=== PATIENT | female | born 1950 | race Caucasian/White ===

== ENCOUNTER → 2016-10-10 | Outpatient (CLI) | payer MEDICARE ==
--- NOTE | 2016-10-11 10:24 | MM ---
Reason for exam: screening (asymptomatic). Last mammogram was performed 4 years and 6 months ago. History: Patient is postmenopausal. Family history of premenopausal breast cancer in mother. Physical Findings: A clinical breast exam by your physician is recommended on an annual basis and results should be correlated with mammographic findings. MG Screening Mammo w CAD Bilateral CC and MLO view(s) were taken. Prior study comparison: April 12, 2012, bilateral digital screening mammo w/CAD. There are scattered fibroglandular densities. Asymmetric breast tissue in the left breast, stable. There is no discrete abnormality. ASSESSMENT: Negative, BI-RAD 1 RECOMMENDATION: Routine screening mammogram of both breasts in 1 year.
== END | disposition home or self-care (01) ==
LOC: RADMAMWWP 12:43
PROVIDERS: ATTEND Family Medicine
DX: Z12.31 Encounter for screening mammogram for malignant neoplasm of breast (principal)

== ENCOUNTER → 2018-02-07 | Outpatient (CLI) | payer MEDICARE, OTHER ==
--- NOTE | 2018-02-07 14:04 | BD ---
EXAMINATION TYPE: Axial Bone Density DATE OF EXAM: 02/07/2018 COMPARISON: NONE CLINICAL HISTORY: 67 YR OLD FEMALE....ICD-10 CODE: Z13.820 SCREENING Height: 64.4 Weight: 204 FRAX RISK QUESTIONS: CURRENT Tobacco Use: YES RISK FACTORS HISTORY OF: Family History of Osteoporosis: YES, HER MOTHER NO HIP FX Active: YES Diet low in dairy products/other sources of calcium: NO Postmenopausal woman: YES AT AGE 48 YRS OLD MEDICATIONS: Additional Medications: BP MEDS, VIT D, LIPITOR Additional History: HYPERTENSION, EXAM MEASUREMENTS: Bone mineral densitometry was performed using the Huddle System. Bone mineral density as measured about the Lumbar spine is: ----- L1-L4(G/cm2): 1.229 T Score Values are as follows: ----- L1: 0.2 ----- L2: 0.2 ----- L3: 0.8 ----- L4: 0.2 ----- L1-L4: 0.4 Bone mineral density BASELINE STUDY Bone mineral density about the R hip (g/cm2): 0.804 Bone mineral density about the L hip (g/cm2): 0.829 T Score values are as follows: -----R Neck: -1.4 -----L Neck: -1.5 -----R Total: -1.6 -----L Total: -1.4 Bone mineral density has: FIRST BONE DENSITY TEST......BASELINE STUDY FRAX%s: THERE IS A 9.2% CHANCE OF A MAJOR OSTEOPOROTIC FX AND A 1.9% FOR A HIP FX.......PROBABILI TY OF FX IN 10 YRS TIME IMPRESSION: Osteopenia (T Score between -2.5 and -1). There is slightly increased risk of fracture and the patient may be considered for treatment. Re-Screen 2-5 years. NOTE: T-SCORE=SD OF THE YOUNG ADULT MEAN.
--- NOTE | 2018-02-12 12:33 | MM ---
Reason for exam: screening (asymptomatic). Last mammogram was performed 1 year and 4 months ago. History: Patient is postmenopausal. Family history of premenopausal breast cancer in mother. Physical Findings: A clinical breast exam by your physician is recommended on an annual basis and results should be correlated with mammographic findings. MG 3D Screening Mammo W/Cad Bilateral CC and MLO view(s) were taken. Prior study comparison: October 10, 2016, bilateral MG screening mammo w CAD. April 12, 2012, bilateral digital screening mammo w/CAD. There are scattered fibroglandular densities. Asymmetric breast tissue in the left breast is stable. There is no discrete abnormality. ASSESSMENT: Negative, BI-RAD 1 RECOMMENDATION: Routine screening mammogram of both breasts in 1 year.
== END | disposition home or self-care (01) ==
LOC: RADMAMWWP 12:32
PROVIDERS: ATTEND Family Medicine
DX: Z12.31 Encounter for screening mammogram for malignant neoplasm of breast (principal); M85.88 Other specified disorders of bone density and structure, other site
CPT/HCPCS: 77063; 77067; 77080

== ENCOUNTER → 2019-02-13 | Outpatient (CLI) | payer MEDICARE, OTHER ==
--- NOTE | 2019-02-17 09:53 | MM ---
Reason for exam: screening (asymptomatic). Last mammogram was performed 1 year ago. History: Patient is postmenopausal. Family history of premenopausal breast cancer in mother. Physical Findings: A clinical breast exam by your physician is recommended on an annual basis and results should be correlated with mammographic findings. MG 3D Screening Mammo W/Cad Bilateral CC and MLO view(s) were taken. Prior study comparison: February 07, 2018, bilateral MG 3d screening mammo w/cad. October 10, 2016, bilateral MG screening mammo w CAD. The breast tissue is heterogeneously dense. This may lower the sensitivity of mammography. Asymmetric breast tissue greater in the left breast. No significant changes when compared with prior studies. ASSESSMENT: Benign, BI-RAD 2 RECOMMENDATION: Routine screening mammogram of both breasts in 1 year.
== END | disposition home or self-care (01) ==
LOC: RADMAMWWP 14:27
PROVIDERS: ATTEND Family Medicine
DX: Z12.31 Encounter for screening mammogram for malignant neoplasm of breast (principal)
CPT/HCPCS: 77063; 77067

== ENCOUNTER → 2021-02-25 | Outpatient (CLI) | payer MEDICARE, OTHER ==
[2021-02-25 10:44] LABS: Anisocytosis Slight; HCT 45.1 % (34.0-46.0); HGB 14.4 gm/dL (11.4-16.0); MCH 28.8 pg (25.0-35.0); MCHC 31.9 g/dL (31.0-37.0); MCV 90.3 fL (80.0-100.0); Mean Platelet Volume 7.1; Platelet Count 311 k/uL (150-450); RBC 4.99 m/uL (3.80-5.40); RDW 16.4 % (11.5-15.5); WBC 10.6 k/uL (3.8-10.6)
[2021-02-25 11:03] LABS: Albumin 4.6 g/dL (3.5-5.0); Calcium 9.5 mg/dL (8.4-10.2); Potassium 4.2 mmol/L (3.5-5.1); Total Bilirubin 0.4 mg/dL (0.2-1.3); Total Protein 7.6 g/dL (6.3-8.2)
[2021-02-25 11:20] LABS: INR 0.9 (<1.2); Prothrombin Time 9.6 sec (9.0-12.0)
[2021-02-25 11:39] LABS: Appearance,Urine Cloudy (Clear); Bacteria,Urine Occasional /hpf; Bilirubin,Urine Negative (Negative); Blood,Urine Small (Negative); Color,Urine Yellow; Glucose,Urine (UA) Negative (Negative); Hyaline Casts,Urine 6 /lpf (0-2); Ketones,Urine Negative (Negative); Leukocyte Esterase,Urine Large (Negative); Mucus,Urine Few /hpf; Nitrite,Urine Negative (Negative); PH, Urine 5.5 (5.0-8.0); Protein,Urine Trace (Negative); RBC,Urine 8 /hpf (0-5); Specific Gravity,Urine 1.022 (1.001-1.035); Squamous Epithelial Cell,Urine 5 /hpf (0-4); Urobilinogen,Urine <2.0 mg/dL (<2.0); WBC,Urine 7 /hpf (0-5)
== END | disposition home or self-care (01) ==
LOC: LABPAT 09:50
PROVIDERS: ATTEND Orthopaedic Surgery
DX: Z01.818 Encounter for other preprocedural examination (principal); M16.11 Unilateral primary osteoarthritis, right hip
CPT/HCPCS: 36415; 80053; 81001; 85027; 85610; 85730; 87070; 93005

== ENCOUNTER 2021-03-02 11:16 | Day surgery (SDC) | payer MEDICARE, OTHER ==
[2021-02-22 14:26] VITALS: BMI 29.1
[~2021-03-02 11:16] MED LIST: ACETAMINOPHEN TAB 500 MG TAB PO PRN; DEXAMETHASONE SOD PHOSPHATE 10 MG/ML 1 ML VIAL IV PRN; DEXAMETHASONE SOD PHOSPHATE 4 MG/ML 1 ML VIAL IV ONE; DOCUSATE 100 MG CAP PO PRN; FAMOTIDINE 20 MG/2 ML VIAL IVP PRN; HYDROmorphone 0.5 MG/0.5 ML SYRINGE IVP PRN; KETOROLAC 15 MG/ML 1 ML VIAL IVP PRN; LIDOCAINE 1% (10MG/ML) FOR IV START INTRADERMA PRN; MIDAZOLAM 2 MG/2 ML VIAL IV PRN; ONDANSETRON 4 MG/2 ML VIAL IVP ONE; ONDANSETRON 4 MG/2 ML VIAL IVP PRN; TRANEXAMIC ACID 1,000 MG in SODIUM CHLORIDE 0.9% 100 ML IVPB PRN; VANCOMYCIN 1,000 MG in SODIUM CHLORIDE 0.9% 250 ML IVPB PRN; VANCOMYCIN 1,250 MG in SODIUM CHLORIDE 0.9% 250 ML IVPB PRN; oxyCODONE ER 10 MG TAB.ER.12H PO PRN
[2021-03-02] MEDS: LACTATED RINGERS 1,000 ML IV SCH (12:30)
[2021-03-02] MEDS ORDERED: ROPIVACAINE/EPI/CLONIDINE/KET 50 ML SYRINGE MISCELLANE PRN (12:58)
[2021-03-02] MEDS ORDERED: PROPOFOL 10 MG/ML 20 ML VIAL IV ONE (13:02)
[2021-03-02] MEDS ORDERED: KETAMINE 10 MG/ML 20 ML VIAL ONE (13:02)
[2021-03-02] MEDS ORDERED: LABETALOL 5 MG/ML VIAL MDV ONE (13:02)
[2021-03-02] MEDS ORDERED: LIDOCAINE 1% INJ 10MG/ML (20 ML MDV) ONE (13:02)
[2021-03-02] MEDS ORDERED: SODIUM CHLORIDE 0.9% 100 ML BAG ONE (13:02)
[2021-03-02] MEDS ORDERED: MIDAZOLAM 2 MG/2 ML VIAL ONE (13:02)
[2021-03-02] MEDS ORDERED: HYDROmorphone (PF) 1 MG/ML ONE (13:02)
[2021-03-02] MEDS ORDERED: TRANEXAMIC ACID 1,000 MG/10 ML VIAL ONE (13:02)
[2021-03-02] MEDS ORDERED: fentaNYL (PF) 50 MCG/ML 2 ML AMP ONE (13:02)
[2021-03-02] MEDS ORDERED: VANCOMYCIN 1,000 MG VIAL MISCELLANE ONE (16:35)
[2021-03-02] MEDS ORDERED: HYDROmorphone 0.2 MG/1 ML SYRINGE IVP PRN (17:09)
[2021-03-02] MEDS ORDERED: ONDANSETRON 4 MG/2 ML VIAL IVP PRN (17:09)
[2021-03-02] MEDS ORDERED: HYDROmorphone 0.5 MG/0.5 ML SYRINGE IVP PRN ×2 (17:09)
[2021-03-02] MEDS ORDERED: NALOXONE 0.4 MG/ML 1 ML VIAL IV PRN (17:09)
[2021-03-02] MEDS ORDERED: hydrOXYzine pamoate 25 MG CAP PO PRN (17:09)
[2021-03-02] MEDS ORDERED: HYDROcodone/APAP 5-325MG 1 EACH TAB PO PRN ×2 (17:09)
--- NOTE | 2021-03-02 17:25 | P.OP ---
Date of Procedure: 03/02/21 Preoperative Diagnosis: Right hip osteoarthritis Postoperative Diagnosis: Same Procedure(s) Performed: Right direct anterior total hip arthroplasty Implants: 1. [place] Trident II 52 mm 2. Breonna [place] 37.5 mm, No. 1 femoral stem 3. Biolox 36 mm, -5 head Anesthesia: alvaro RAMOS Surgeon: Bakari Denton Plant Floor Automation Manager #1: Lorelei Robledo Estimated Blood Loss (ml): 200 IV fluids (ml): 2,000 Pathology: none sent Condition: stable Disposition: PACU Indications for Procedure: The patient is very pleasant previously healthy 70-year-old female with a long- standing history of both right hip pain and low back pain. She is previously been seen in my office for lumbar stenosis. She came to see me in regards to her right hip. On exam she had exquisite pain and limited motion with any attempts at passive range of motion of the hip. Her x-rays showed severe arthritis. We discussed continued nonsurgical treatment versus surgery with a total hip replacement. Since the patient failed over 12 months of nonsurgical treatment and had a physical exam consistent with symptomatically arthritis we discussed that it was reasonable to proceed with a total hip replacement. We had a long discussion on the potential risks and complications of surgery including but certainly not limited to risk of anesthesia, superficial infection, deep infection, periprosthetic joint infection, delayed wound healing , superficial wound necrosis, damage to local blood vessels or nerves, leg length discrepancy, instability, continued or worsened pain, iliopsoas tendinitis, squeaking, DVT, PE, other medical complications, and possibly loss of life or limb. The patient analogies that will these are the most common complications other less common complications are possible. She provided her verbal and written consent to surgery. Description of Procedure: The patient was identified in preoperative holding and the correct right leg was marked with my initials. I reviewed the consent form with the patient and all of her questions were answered. The patient was then brought back to the operating room. She was given a spinal anesthetic. Her leg lengths were felt and she felt to be 2-3 mm short on the operative side. Here over the proximal aspect of the groin was shaved. Paola boots were placed. The patient was then carefully transferred onto the hand table. She was positioned and all bony prominences well-padded. Preoperative fluoroscopy was taken imaging the pelvis in the functional position compared to her standing AP pelvis in the office. A metal sean was used to create a bi-ischial line. The right leg was then prepped and draped in the standard sterile fashion. Prior to starting surgery timeout was performed identifying the correct patient, operative extremity, and procedure. Next I began by making a longitudinal direct anterior incision 1 fingerbreadth down and 3 fingerbreadths over from the ASIS. Skin incision was made with a scalpel and dissection was carried down carefully with electrocautery. The fascia was split longitudinally in line with the incision. I bluntly developed the interval between the tensor and sartorius. A Cobra was placed superior to the neck. I then dissected down through the tensor fascia uncovering the lateral femoral circumflex vessels. These were controlled with bipolar sealant. I dissected down onto the capsule and a second cobra was placed inferiorly to the neck. I then developed the interval between the indirect head of the rectus and the capsule and placed a sharp Hohmann retractor anteriorly. The capsule was then teed. The superior capsular leaflet was raised and the Cobra was placed intracapsularly. The inferior capsule was excised. I marked out the femoral neck cut and came in fluoroscopy to assess the level. Retractors were then placed in the neck cut was made with a reciprocating saw. The head was removed and sized to 50 mm. The superior capsular leaflet was excised and the acetab ulum was circumferentially exposed. I then reamed starting with a 49 mm reamer up to a 51 mm which had excellent bite. I then reamed line to line with a 52 mm reamer. The socket was thoroughly irrigated and a 52 mm cup was gently tapped into place. Fluoroscopy was used to fine-tune version and inclination making sure that we had a true AP pelvis. The socket had an excellent purchase. I elected to place a single screw for augmented stability. I then placed a polyethylene liner and tapped it into place. Attention was then turned to the femur. The femur was circumferentially exposed and elevated with a femoral lift hook. The superior capsule was released. Once the proximal femur was exposed and transected the canal was achieved with a box osteotome and blunt-tipped canal sound. I lateralized and then sequentially broached up to a 37 5 #1 which felt stable. The calcar planar was used to bring the neck cut flush with the broach. A trial head was placed and the hip was reduced. Using the [place] stem we were at the first dot. we had lost some length that the hip was stable. We did slightly increased offset. The hip was then carefully dislocated. The canal was thoroughly irrigated. A cement restrictor was placed distally. Epinephrine-soaked gauze was placed down the canal. Cement was mixed and pressurized into the femur. The final [place] stem was inserted by hand sitting up slightly from where we trialed to give her some length. There are some difficulty reducing the hip so we elected to use a 36 mm, -5 head which is able to reduce. The hip was stable with external rotation with no impingement. Final fluoroscopic images were taken. The stem appeared to be in satisfactory position with a good cement mantle. Length was appropriate. Final fluoroscopic images were saved. The wound was then soaked with a dilute Betadine solution for 3 minutes. The wound was thoroughly irrigated using 3 L of pulsatile lavage. 2 g of vancomycin powder was placed around the implant. The deep drain was placed. The fascia was closed with a running 0 strata fix which was run to the deep fatty layer. The superficial subcu was closed with a running 20 strata fix. The skin was closed with a running 3-0 Monocryl and reinforced with Dermabond. A sterile dressing was applied. The patient was then carefully taken out of the drapes and transferred to a rwindsor. Immediately upon removing the Paola boots I checked leg lengths and she felt close to equal. The patient was then brought to recovery having tolerated the procedure well. Lorelei Robledo PA-C was required as a skilled compounding assistant due to the complexity of the case for patient positioning, exposure, retraction, placement of hardware, closure of wound, and placement of dressing. Plan: The patient is going to stay overnight. She will receive 2 doses of postoperative antibiotics. She'll be treated with aspirin for DVT prophylaxis. She'll likely discharge home tomorrow.
[2021-03-02] MEDS: ASPIRIN 81 MG PO SCH (20:38)
[2021-03-02] MEDS ORDERED: SENNOSIDES-DOCUSATE SODIUM 1 EACH TAB PO SCH (21:00)
--- NOTE | 2021-03-03 01:58 | XR ---
EXAMINATION TYPE: XR Hip Complete RT DATE OF EXAM: 03/02/2021 COMPARISON: NONE HISTORY: Pain TECHNIQUE: 4 views FINDINGS: 4 fluoroscopic images were obtained at show placement of a right total hip prosthesis. Comp onents appear in anatomic position. IMPRESSION: No complicating process seen.
[2021-03-03] MEDS: LACTATED RINGERS 1,000 ML IV SCH (04:46)
--- NOTE | 2021-03-03 08:15 | FL ---
EXAMINATION TYPE: FL guidance operating room DATE OF EXAM: 03/02/2021 FLUOROSCOPY Fluoroscopy time of 56 seconds was used during anterior right hip replacement. 3 image/s document/s the procedure.
[2021-03-03] MEDS: ASPIRIN 81 MG PO SCH (08:16)
[2021-03-03 08:40] VITALS: RESP 20
[2021-03-03 09:19] LABS: Basophils # (A) 0.01 X 10*3/uL (0.00-0.10); Basophils % (A) 0.1 %; Eosinophils # (A) 0 X 10*3/uL (0.04-0.35); Eosinophils % (A) 0 %; HCT 31.5 % (37.2-46.3); HGB 9.9 g/dL (12.0-15.0); Lymphocytes # (A) 1.18 X 10*3/uL (0.90-5.00); Lymphocytes % (A) 7.8 %; MCH 28.2 pg (27.0-32.0); MCHC 31.4 g/dL (32.0-37.0); MCV 89.7 fL (80.0-97.0); Mean Platelet Volume 10.5 fL (9.5-12.2); Monocytes # (A) 1.25 X 10*3/uL (0.20-1.00); Monocytes % (A) 8.2 %; Neutrophils # (A) 12.66 X 10*3/uL (1.80-7.70); Neutrophils % (A) 83.4 %; Platelet Count 251 X 10*3/uL (140-440); RBC 3.51 X 10*6/uL (4.10-5.20); RDW 15.9 % (11.5-14.5); WBC 15.18 X 10*3/uL (4.50-10.00)
--- NOTE | 2021-03-03 10:53 | P.DS ---
Providers Expected date of discharge: 03/03/21 Attending physician: Bakari Denton Consults: 03/03/21 08:41 Consult Physician Routine Consulting Provider: Katelyn Acuña Consult Reason/Comments: medical management Do you want consulting provider notified?: Yes Primary care physician: Shima Christianson [facility] Course: This is a 70-year-old female who was last seen in our office with complaint of c ontinued right hip pain. The patient has a known history of degenerative arthritis of the right hip and presents to discuss surgical options. After discussion and consideration the patient elects to proceed with total right hip arthroplasty. She is seen preoperatively by Dr. Christianson and cleared for surgery. Patient underwent a right total hip arthroplasty on 03/02/[address] Denton. The patient is admitted to [facility] for total right hip arthroplasty. The procedure is performed without complication or sequelae. The patient is doing well postoperatively. Vital signs and postoperative labs are stable. Patient is seen and examined bedside this morning. She states she is doing very well experiencing no pain in the right hip. She has been working with physical therapy this morning. She has been to the bathroom with a walker without issue. She is voiding without issue. She denies chest pain, joint, vomiting. She would like to return home today. No complaints this morning. on examination, the patient is sitting up in bed in no apparent distress. She is alert and oriented 3. On inspection of the right hip, there is a clean, dry, intact topical dressing in place. No bleeding or drainage to the dressing. The thigh is soft and compressible. Dorsalis pedis pulses +2. The right lower extremity is warm and well perfused. Motor and sensory function is intact of the right lower extremity. Patient is able to fire quad. Hemovac drain was pulled bedside today. Dressing was placed with 4x4s and tegaderm. Patient tolerated this well. The patient is discharged to home with home health care today, in good condition. Please see discharge orders. Please refer to the med rec for accurate list of medications. Plan - Discharge Summary Discharge Rx Participant: Yes New Discharge Prescriptions: New Aspirin 81 mg PO BID 30 Days #60 tab Doxycycline Monohydrate 100 mg PO BID 14 Days #28 Diclofenac Sodium [Voltaren] 75 mg PO BID 30 Days #60 tab Docusate [Colace] 100 mg PO BID 30 Days #60 cap Doxycycline Monohydrate 100 mg PO BID 14 Days #28 tab Docusate [Colace] 100 mg PO BID 30 Days #60 HYDROcodone/APAP 5-325MG [[place] 5-325] 1 tab PO Q6HR PRN 7 Days #28 tab PRN Reason: Pain Omeprazole 40 mg PO DAILY #30 cap No Action Naproxen Sodium [Aleve] 220 mg PO QAM Hydrochlorothiazide [hydroCHLOROthiazide] 12.5 mg PO QAM Cranberry Fruit Extract [Cranberry] 200 mg PO QAM Cholecalciferol [Vitamin D3 (25 Mcg = 1000 Iu)] 25 mcg PO QAM Escitalopram [Lexapro] 10 mg PO QAM Bisoprolol-Hctz 10-6.25 mg [Ziac 10-6.25 MG] 1 tab PO QAM Simvastatin 20 mg PO TUFR Aspirin [Adult Low Dose Aspirin EC] 81 mg PO QAM Discharge Medication List Aspirin [Adult Low Dose Aspirin EC] 81 mg PO QAM 02/22/21 [History] Bisoprolol-Hctz 10-6.25 mg [Ziac 10-6.25 MG] 1 tab PO QAM 02/22/21 [History] Cholecalciferol [Vitamin D3 (25 Mcg = 1000 Iu)] 25 mcg PO QAM 02/22/21 [History] Cranberry Fruit Extract [Cranberry] 200 mg PO QAM 02/22/21 [History] Escitalopram [Lexapro] 10 mg PO QAM 02/22/21 [History] Hydrochlorothiazide [hydroCHLOROthiazide] 12.5 mg PO QAM 02/22/21 [History] Naproxen Sodium [Aleve] 220 mg PO QAM 02/22/21 [History] Simvastatin 20 mg PO TUFR 02/22/21 [History] Aspirin 81 mg PO BID 30 Days #60 tab 03/03/21 [Rx] Diclofenac Sodium [Voltaren] 75 mg PO BID 30 Days #60 tab 03/03/21 [Rx] Docusate [Colace] 100 mg PO BID 30 Days #60 03/03/21 [Rx] Docusate [Colace] 100 mg PO BID 30 Days #60 cap 03/03/21 [Rx] Doxycycline Monohydrate 100 mg PO BID 14 Days #28 03/03/21 [Rx] Doxycycline Monohydrate 100 mg PO BID 14 Days #28 tab 03/03/21 [Rx] HYDROcodone/APAP 5-325MG [[place] 5-325] 1 tab PO Q6HR PRN 7 Days #28 tab 03/03/21 [Rx] Omeprazole 40 mg PO DAILY #30 cap 03/03/21 [Rx] Follow up Appointment(s)/Referral(s): Amy [facility] [NON-STAFF] - ([facility] will call you to set up your first visit. Please call them if you have questions regarding your home PT.) Bakari Denton MD [Medical Doctor] - 1 Week Activity/Diet/Wound Care/Special Instructions: Weight bearing as tolerated on operative leg. Keep dressing in place for 7-10 days. Take pain medications as prescribed. Take aspirin for blood clot prevention. Follow-up in the with Dr. Denton in two weeks. Call the office with any questions or concerns, Discharge Disposition: HOME WITH HOME HEALTH SERVICES
[2021-03-03 12:53] VITALS: BP 112/63; PULSE 88; TEMP 98.2
--- NOTE | 2021-03-03 15:07 | P.CONS ---
History of Present Illness - Reason for Consult Consult date: 03/03/21 - History of Present Illness Patient was discharged within a few hours after consult was placed Patient not seen by me during this admission Past Medical History Past Medical History: Hyperlipidemia, Hypertension, Osteoarthritis (OA) Additional Past Medical History / Comment(s): Frequent UTI's. Patient states started with UTI symtoms and had Bactrim at home and started taking it 3 days ago. States having lab work drawn tomorrow and sees Dr Denton tomorrow as well. Advised to inform him of UTI symptoms and of taking Bactrim. Varicose veins. History of Any Multi-Drug Resistant Organisms: None Reported Additional Past Surgical History / Comment(s): Varicose vein removed from left leg, cortisone injections in back, eye surgery. Past Anesthesia/Blood Transfusion Reactions: No Reported Reaction Past Psychological History: Anxiety, Depression Smoking Status: Current every day smoker Past Alcohol Use History: Occasional Additional Past Alcohol Use History / Comment(s): Has been smoking for 50 yrs, 8-10 ciagrettes per day. Past Drug Use History: None Reported - Past Family History Mother Family Medical History: Cancer Additional Family Medical History / Comment(s): Breast cancer. Medications and Allergies Home Medications Medication Instructions Recorded Confirmed Type Aspirin [Adult Low Dose Aspirin EC] 81 mg PO QAM 02/22/21 02/22/21 History Bisoprolol-Hctz 10-6.25 mg [Ziac 1 tab PO QAM 02/22/21 02/22/21 History 10-6.25 MG] Cholecalciferol [Vitamin D3 (25 25 mcg PO QAM 02/22/21 02/22/21 History Mcg = 1000 Iu)] Cranberry Fruit Extract [Cranberry] 200 mg PO QAM 02/22/21 02/22/21 History Escitalopram [Lexapro] 10 mg PO QAM 02/22/21 02/22/21 History Hydrochlorothiazide 12.5 mg PO QAM 02/22/21 02/22/21 History [hydroCHLOROthiazide] Naproxen Sodium [Aleve] 220 mg PO QAM 02/22/21 02/22/21 History Simvastatin 20 mg PO TUFR 02/22/21 02/22/21 History Aspirin 81 mg PO BID 30 Days #60 tab 03/03/21 Rx Diclofenac Sodium [Voltaren] 75 mg PO BID 30 Days #60 tab 03/03/21 Rx Docusate [Colace] 100 mg PO BID 30 Days #60 03/03/21 Rx Docusate [Colace] 100 mg PO BID 30 Days #60 cap 03/03/21 Rx Doxycycline Monohydrate 100 mg PO BID 14 Days #28 03/03/21 Rx Doxycycline Monohydrate 100 mg PO BID 14 Days #28 tab 03/03/21 Rx HYDROcodone/APAP 5-325MG [[place] 1 tab PO Q6HR PRN 7 Days #28 tab 03/03/21 Rx 5-325] Omeprazole 40 mg PO DAILY #30 cap 03/03/21 Rx Allergies Allergy/AdvReac Type Severity Reaction Status Date / Time No Known Allergies Allergy Verified 03/02/21 11:43 Physical Exam Vitals: Vital Signs Temp Pulse Resp BP Pulse Ox 03/03/21 08:39 97.8 F 89 20 114/69 92 L 03/03/21 00:51 98.6 F 94 14 111/68 92 L 03/02/21 20:00 86 133/77 03/02/21 19:30 82 123/72 03/02/21 19:15 91 138/73 03/02/21 19:00 87 142/74 03/02/21 18:43 86 18 135/79 92 L 03/02/21 18:20 88 18 135/78 90 L 03/02/21 18:05 82 18 130/71 95 03/02/21 17:50 90 18 145/70 95 03/02/21 17:45 79 18 135/72 97 03/02/21 17:29 77 18 133/72 97 03/02/21 17:13 82 18 108/51 97 03/02/21 16:58 98.1 F 85 18 113/59 96 03/02/21 11:58 98.7 F 104 H 16 156/78 94 L Intake and Output 03/02/21 03/03/21 03/03/21 22:59 06:59 14:59 Intake Total 200 Output Total 300 Balance -100 Intake: IV 200 Output: Estimated Blood Loss 300 Other: # Voids 1 1 Weight 85.6 kg Results CBC & Chem 7: 03/03/21 06:35 Labs: Abnormal Lab Results - Last 24 Hours (Table) 03/03/21 Range/Units 06:35 WBC 15.18 H (4.50-10.00) X 10*3/uL RBC 3.51 L (4.10-5.20) X 10*6/uL Hgb 9.9 L (12.0-15.0) g/dL Hct 31.5 L (37.2-46.3) % MCHC 31.4 L (32.0-37.0) g/dL RDW 15.9 H (11.5-14.5) % Immature Gran # 0.08 H (0.00-0.04) X 10*3/uL Neutrophils # 12.66 H (1.80-7.70) X 10*3/uL Monocytes # 1.25 H (0.20-1.00) X 10*3/uL Eosinophils # 0 L (0.04-0.35) X 10*3/uL
[2021-03-04] MEDS ORDERED: ATORVASTATIN 10 MG TAB PO SCH (09:00)
[2021-03-04] MEDS ORDERED: CHOLECALCIFEROL 25 MCG (1000 IU) TABLET PO SCH (09:00)
[2021-03-04] MEDS ORDERED: hydroCHLOROthiazide 12.5 MG CAP PO SCH (09:00)
[2021-03-04] MEDS ORDERED: ESCITALOPRAM 10 MG TAB PO SCH (09:00)
[2021-03-04] MEDS ORDERED: BISOPROLOL-HCTZ 10-6.25 MG 1 EACH TAB PO SCH (09:00)
[2021-03-04] MEDS ORDERED: ASPIRIN 81 MG PO SCH (09:00)
== END 2021-03-03 14:50 | disposition home health service (06) ==
LOC: OR 11:16 → 4SSUR 16:58 → OR 03-03 14:50
PROVIDERS: ATTEND Orthopaedic Surgery
DX: M16.11 Unilateral primary osteoarthritis, right hip (principal); I10 Essential (primary) hypertension; F32.9 Major depressive disorder, single episode, unspecified; Z79.82 Long term (current) use of aspirin; Z79.899 Other long term (current) drug therapy; F17.210 Nicotine dependence, cigarettes, uncomplicated; M16.12 Unilateral primary osteoarthritis, left hip; E78.5 Hyperlipidemia, unspecified
CPT/HCPCS: 97161; 86900; 86901; 82040; 85025; 86850; 88300; 73502; 27130; C1776; C1713; J2250; J0171; J3370; J1100; J0690 ×2; J2405; J2001; J3010; J1170; J1885; J2704

== ENCOUNTER → 2024-04-15 | Outpatient (CLI) | payer MEDICARE, OTHER ==
--- NOTE | 2024-04-17 09:23 | MM ---
Reason for Exam: Screening (asymptomatic). Last mammogram was performed 1 year(s) and 8 month(s) ago. Patient History: Menarche at age 12. First Full-Term at age 21. Postmenopausal. Mother had breast cancer, age 50. Risk Values: Tara 5 year model risk: 3.4%. NCI Lifetime model risk: 7.7%. Prior Study Comparison: 02/07/2018 Bilateral Screening Mammogram, [facility]. 02/13/2019 Bilateral Screening Mammogram, [facility]. 08/15/2022 Bilateral MG 3D screening mammo w/cad, [facility]. Tissue Density: There are scattered areas of fibroglandular density. Findings: Analyzed By CAD. There is no suspicious group of microcalcifications or new suspicious mass in either breast. Overall Assessment: Negative, BI-RAD 1 Management: Screening Mammogram of both breasts in 1 year. . Patient should continue monthly self-breast exams. A clinical breast exam by your physician is recommended on an annual basis. This exam should not preclude additional follow-up of suspicious palpable abnormalities. Note on Tara scores and lifetime risk: 1. A Tara score greater than 3% is considered moderate risk. If this is the case, consider specialist referral to assess eligibility for a risk reducing agent. 2. If overall lifetime risk for the development of breast cancer is 20% or higher, the patient may qualify for future screening with alternating mammogram and breast MRI. [facility], , 04/17/2024 9:20 AM. Electronically signed and approved by: Howard Ambrose M.D. Radiolog[facility]
== END | disposition home or self-care (01) ==
LOC: RADMAMWWP 12:46
PROVIDERS: ATTEND Family Medicine
CPT/HCPCS: 77063; 77067